=== PATIENT | female | born 1965 | race Caucasian/White ===

== ENCOUNTER → 2016-04-27 | Outpatient (CLI) | payer OTHER ==
--- NOTE | 2016-04-27 19:45 | Diagnostic Imaging Report ---
DIGITAL MAMMO LT DIAG W/CAD Comparison: 07/24/2015 and 12/16/2014. Indication: Six-month followup status post stereotactic biopsy of left breast calcifications. Technique: Digital diagnostic mammography of the left breast was obtained with a computer-aided detection (CAD) system. Findings: The retropectoral left breast implant is stable. There are scattered fibroglandular densities. There is a biopsy clip in the posterior left breast at approximately the 12:00 position from prior biopsy. There are no residual microcalcifications present. No new microcalcifications. No suspicious mass or architectural distortion. Impression: No residual microcalcifications in the left breast status post stereotactic biopsy. No evidence of malignancy. Recommend return to annual bilateral screening mammogram for which the patient will be due in July 2016. ACR BI-RADS Category 2: Benign findings. Result letter will be mailed to the patient. Note: At least 10% of breast cancer is not imaged by mammography. Dictated by: Dictated on workstation # [id number]
== END ==
LOC: RAD 09:54
PROVIDERS: ATTEND Surgery
DX: R92.0 Mammographic microcalcification found on diagnostic imaging of breast (principal)

== ENCOUNTER → 2016-08-08 | Outpatient (CLI) | payer OTHER ==
--- NOTE | 2016-08-08 18:00 | Diagnostic Imaging Report ---
DIG [place] BILAT SCREEN W CAD COMPARISON: 07/24/2015 and 12/16/2014. INDICATION: Screening mammography. TECHNIQUE: Digital screening mammography was obtained with a computer-aided detection (CAD) system. FINDINGS: The breasts are heterogeneously dense, which may obscure small masses. Bilateral retropectoral saline implants are again noted. No evidence of extracapsular rupture. There is no suspicious microcalcification, dominant mass, or architectural distortion to suggest malignancy. There are scattered benign calcifications in both breasts. There is a biopsy clip present in the central mid left breast, which is new since prior examinations. IMPRESSION: Stable mammogram without evidence of malignancy. Followup screening mammogram in 12 months is recommended. ACR BI-RADS Category 2: Benign findings. Result letter will be mailed to the patient. Note: At least 10% of breast cancer is not imaged by mammography. Dictated by: Dictated on workstation # [id number]
== END ==
LOC: RAD 07:55
PROVIDERS: ATTEND Surgery
DX: Z12.31 Encounter for screening mammogram for malignant neoplasm of breast (principal)